=== PATIENT | male | born 1965 | race American Indian/Alaskan Native ===

== ENCOUNTER 2021-08-16 09:34 | Emergency (ER) | payer SELFPAY ==
[2021-08-16] MEDS ORDERED: IPRATROPIUM 0.02% NEBU 2.5 ML IH ONE (10:12)
[2021-08-16] MEDS ORDERED: predniSONE 20 MG TAB PO ONE (10:12)
[2021-08-16] MEDS ORDERED: ALBUTEROL 2.5 MG/3 ML NEBU IH ONE (10:12)
--- NOTE | 2021-08-16 10:18 | Emergency Department Report ---
HPI - General Chief Complaint: Adult Asthma Time Seen by Provider: 08/16/21 10:07 - HPI HPI: Room 17 The patient is a 55-year-old male present with chief of cough and wheezing. Patient has a history of asthma and states for the past week he has had in creased work of breathing, wheezing and a cough productive of green sputum. Patient mitts to rhinorrhea but denies history of fever. Patient states she received 1 dose of the [employer] vaccine against COVID. ED Past Medical Hx - Past Medical History Previous Medical History?: Yes Hx Asthma: Yes - Surgical History Past Surgical History?: Yes Additional Surgical History: Left knee arthroscopy - Family History Family history: no significant - Social History Smoking Status: Current Every Day Smoker (1/3 pack per) Substance Use Type: None (Denies illicit drug use) - Medications Home Medications: Home Medications Medication Instructions Recorded Confirmed Last Taken Type Albuterol Mdi (or & Nicu Only) 2 puff IH QID PRN #8.5 gram 08/16/21 Unknown Rx [ProAir HFA Inhaler] Prednisone [predniSONE 10 mg 10 mg PO .TAPER #1 08/16/21 Unknown Rx (6-Day Pack, 21 Tabs)] levoFLOXacin [Levaquin TAB] 500 mg PO QDAY #7 tablet 08/16/21 Unknown Rx ED Review of Systems ROS: Stated complaint: BRONCHITIS/ASTHMA Other details as noted in HPI Constitutional: denies: fever Eyes: denies: eye pain ENT: denies: throat pain Respiratory: cough, wheezing Cardiovascular: denies: chest pain Endocrine: no symptoms reported Gastrointestinal: denies: abdominal pain Genitourinary: denies: dysuria Musculoskeletal: denies: back pain Neurological: denies: headache Physical Exam - Physical Exam Vital Signs: Vital Signs 08/16/21 08/16/21 09:58 09:59 Temperature 97.8 F Pulse Rate 56 L Respiratory 12 12 Rate Blood Pressure 125/83 [Right] O2 Sat by Pulse 100 100 Oximetry Physical Exam: GENERAL: The patient is well-developed well-nourished male lying on stretcher not appearing to be in acute distress. [] HEENT: Normocephalic. Atraumatic. Extraocular motions are intact. Patient has moist mucous membranes. NECK: Supple. Trachea midline CHEST/LUNGS: Expiratory wheezing greatest at the bases. There is no respiratory distress noted. HEART/CARDIOVASCULAR: Regular. There is no tachycardia. There is no gallop rub or murmur. ABDOMEN: Abdomen is soft, nontender. Patient has normal bowel sounds. There is no abdominal distention. SKIN: There is no rash. There is no edema. There is no diaphoresis. NEURO: The patient is awake, alert, and oriented. The patient is cooperative. The patient has no focal neurologic deficits. The patient has normal speech. GCS 15 MUSCULOSKELETAL: There is no evidence of acute injury. ED Course Vital Signs 08/16/21 08/16/21 09:58 09:59 Temperature 97.8 F Pulse Rate 56 L Respiratory 12 12 Rate Blood Pressure 125/83 [Right] O2 Sat by Pulse 100 100 Oximetry ED Medical Decision Making - Lab Data Result diagrams: 08/16/21 11:58 08/16/21 11:58 Laboratory Tests 08/16/21 08/16/21 08/16/21 10:40 11:58 11:58 WBC 4.3 L RBC 4.61 Hgb 14.6 Hct 43.3 MCV 94 MCH 32 MCHC 34 RDW 14.3 Plt Count 206 Lymph % (Auto) 26.8 Robertson % (Auto) 6.4 Eos % (Auto) 1.8 Baso % (Auto) 1.1 Lymph # (Auto) 1.2 Robertson # (Auto) 0.3 Eos # (Auto) 0.1 Baso # (Auto) 0.0 Seg Neutrophils % 63.9 Seg Neutrophils # 2.8 Sodium 141 Potassium 3.9 Chloride 106.2 Carbon Dioxide 24 Anion Gap 15 BUN 15 Creatinine 0.8 Estimated GFR > 60 BUN/Creatinine Ratio 19 Glucose 95 Calcium 8.8 Influenza A (Rapid) Negative Influenza B (Rapid) Negative - Radiology Data Radiology results: report reviewed (Chest x-ray), image reviewed (Chest x-ray) interpreted by me: Chest x-ray-no definite focal infiltrates, no pneumothorax [facility] [address] [place] [address] XRay Report Signed Patient: LO HART MR#: [id number] : 1965 Acct:[id number] Age/Sex: 55 / M ADM Date: 08/16/21 Loc: ED Attending Dr: Ordering Physician: HAO DE LA ROSA MD Date of Service: 08/16/21 Procedure(s): XR chest 1V ap Accession Number(s): [id number] cc: HAO DE LA ROSA MD Fluoro Time In Minutes: CHEST 1 VIEW 08/16/2021 10:28 AM INDICATION / CLINICAL INFORMATION: Cough, wheezing. COMPARISON: None available. FINDINGS: SUPPORT DEVICES: None. HEART / MEDIASTINUM: No significant abnormality. LUNGS / PLEURA: No significant pulmonary or pleural abnormality. No pneumothorax. ADDITIONAL FINDINGS: No significant additional findings. IMPRESSION: 1. No acute findings. Signer Name: Giovanni Boyd MD Signed: 08/16/2021 10:43 AM Workstation Name: [id number] Transcribed By: CW Dictated By: RENALDO BOYD MD Electronically Authenticated By: RENALDO BOYD MD Signed Date/Time: 08/16/211042 DD/ 42 TD/TT: - Differential Diagnosis Asthma exacerbation, bronchitis, pneumonia, influenza Critical care attestation.: If time is entered above; I have spent that time in minutes in the direct care of this critically ill patient, excluding procedure time. ED Disposition Clinical Impression: Acute asthma exacerbation, Acute bronchitis Disposition: 01 HOME / SELF CARE / HOMELESS Is pt being admited?: No Does the pt Need Aspirin: No Condition: Stable Instructions: Acute Bronchitis (ED), Asthma, Adult, Acute Bronchitis, Adult Additional Instructions: Return to the emergency department should you develop worsening symptoms, inability to tolerate food or liquids, high fever or any other concerns Prescriptions: levoFLOXacin [Levaquin TAB] 500 mg PO QDAY #7 tablet Prednisone [predniSONE 10 mg (6-Day Pack, 21 Tabs)] 10 mg PO .TAPER #1 Albuterol Mdi (or & Nicu Only) [ProAir HFA Inhaler] 2 puff IH QID PRN #8.5 gram PRN Reason: Shortness Of Breath Referrals: CHATA CARLTON MD [Primary Care Provider] - 3-5 Days (Dr. Carlton is a primary physician. Please follow-up with him to be established as a patient) SHARA CHANG MD [Staff Physician] - 3-5 Days (Dr. Chang is a pulmonolog ist. Please follow-up with her to be established as a patient) Time of Disposition: 13:08
--- NOTE | 2021-08-16 10:47 | XRay Report ---
CHEST 1 VIEW 08/16/2021 10:28 AM INDICATION / CLINICAL INFORMATION: Cough, wheezing. COMPARISON: None available. FINDINGS: SUPPORT DEVICES: None. HEART / MEDIASTINUM: No significant abnormality. LUNGS / PLEURA: No significant pulmonary or pleural abnormality. No pneumothorax. ADDITIONAL FINDINGS: No significant additional findings. IMPRESSION: 1. No acute findings. Signer Name: Giovanni Boyd MD Signed: 08/16/2021 10:43 AM Workstation Name: [id number]
[2021-08-16 12:05] LABS: Basophils % (Auto) 1.1 % (0.0-1.8); Eosinophils # (Auto) 0.1 K/mm3 (0.0-0.4); Eosinophils % (Auto) 1.8 % (0.0-4.3); Hematocrit 43.3 % (35.5-45.6); Hemoglobin 14.6 gm/dl (11.8-15.2); Lymphocytes # (Auto) 1.2 K/mm3 (1.2-5.4); Lymphocytes % (Auto) 26.8 % (13.4-35.0); Mean Corpuscular HGB Conc 34 % (32-34); Mean Corpuscular Volume 94 fl (84-94); Monocytes # (Auto) 0.3 K/mm3 (0.0-0.8); Monocytes % (Auto) 6.4 % (0.0-7.3); Platelet Count 206 K/mm3 (140-440); Red Blood Count 4.61 M/mm3 (3.65-5.03); Red Cell Distribution Width 14.3 % (13.2-15.2)
[2021-08-16 12:25] LABS: BUN/Creatinine Ratio 19; Blood Urea Nitrogen 15 mg/dL (9-20); Calcium 8.8 mg/dL (8.4-10.2); Hemolysis Index 7
[2021-08-16 13:36] VITALS: BP 121/77
== END 2021-08-16 13:36 | disposition home or self-care (01) ==
LOC: ED 09:34
DX: J20.9 Acute bronchitis, unspecified (principal); J45.901 Unspecified asthma with (acute) exacerbation; F17.200 Nicotine dependence, unspecified, uncomplicated
CPT/HCPCS: 36415; 71045; 80048; 85025; 87400; 94640; 94644; 99284